=== PATIENT | female | born 1970 | race Caucasian/White ===

== ENCOUNTER 2016-06-20 12:45 | Emergency (ER) | payer BC, OTHER ==
[~2016-06-20] VITALS: Ht 162.6 cm; Wt 91.2 kg
[2016-06-20] MEDS ORDERED: LOSA100T37 PO (13:08)
[2016-06-20] MEDS ORDERED: METF500T4 PO (13:08)
[2016-06-20] MEDS ORDERED: SERT50TA PO (13:08)
[2016-06-20] MEDS ORDERED: diphenhydrAMINE 25 MG CAP As Ordered ONE (14:27)
[2016-06-20] MEDS ORDERED: diphenhydrAMINE 50 MG CAP PO ONE (14:30)
[2016-06-20 15:42] VITALS: BP 175/91
[2016-06-20] MEDS ORDERED: BENA25CA4 PO (15:43)
[2016-06-20] MEDS ORDERED: PRED20TA PO (15:43)
[2016-06-20] MEDS ORDERED: EPIN0.3I6 IM (15:50)
== END 2016-06-20 15:54 | disposition home or self-care (01) ==
LOC: M ED 14:17
DX: R22.1 Localized swelling, mass and lump, neck (principal); T78.40XA Allergy, unspecified, initial encounter; Y92.89 Other specified places as the place of occurrence of the external cause; Y93.89 Activity, other specified; Z88.2 Allergy status to sulfonamides; Z91.040 Latex allergy status; Z79.899 Other long term (current) drug therapy; Z79.84 Long term (current) use of oral hypoglycemic drugs; I10 Essential (primary) hypertension

== ENCOUNTER → 2017-04-19 | Outpatient (CLI) | payer BC, OTHER ==
[2017-04-19 17:16] LABS: BASO # 0.1 10^3/uL (0.0-0.2); EOS # 0.3 10^3/uL (0.0-0.50); EOS % 3.9 % (0.0-3.0); HEMATOCRIT 41.8 % (36.0-47.0); HEMOGLOBIN 13.6 g/dl (12.0-16.0); IMMATURE GRANULOCYTE # 0.1 10^3/uL (0-0); IMMATURE GRANULOCYTE % 1.3 % (0-0); LYMPH # 1.8 10^3/uL (1.5-4.5); LYMPH % 23.8 % (24.0-44.0); MEAN CORPUSCULAR HEMOGLOBIN 27.8 pg (27.0-33.0); MEAN CORPUSCULAR HGB CONC 32.5 g/dl (32.0-36.5); MEAN CORPUSCULAR VOLUME 85.5 fl (80.0-96.0); MONO # 0.7 10^3/uL (0.0-0.8); MONO % 9.5 % (0.0-5.0); NEUTROPHILS # 4.7 10^3/uL (1.8-7.7); NEUTROPHILS % 60.5 % (36.0-66.0); PLATELET COUNT, AUTOMATED 377 10^3/uL (150-450); RED BLOOD COUNT 4.89 10^6/uL (4.00-5.40); RED CELL DISTRIBUTION WIDTH 12.9 % (11.5-14.5); WHITE BLOOD COUNT 7.7 10^3/uL (4.0-10.0)
[2017-04-19 18:25] LABS: ESTIMATED AVERAGE GLUCOSE 157 MG/DL (60-110); HEMOGLOBIN A1c 7.1 %
[2017-04-19 18:33] LABS: FOLATE 20.1 NG/ML; VITAMIN B12 LEVEL 692 PG/ML
[2017-04-19 18:38] LABS: ALBUMIN 4.1 GM/DL (3.2-5.2); ALBUMIN/GLOBULIN RATIO 1.17 (1.00-1.93); ALKALINE PHOSPHATASE 64 U/L (45-117); ALT/SGPT 70 U/L (12-78); ANION GAP 9 MEQ/L (8-16); AST/SGOT 59 U/L (7-37); BILIRUBIN,TOTAL 0.2 MG/DL (0.2-1.0); BLOOD UREA NITROGEN 11 MG/DL (7-18); CALCIUM LEVEL 9.4 MG/DL (8.5-10.1); CARBON DIOXIDE LEVEL 27 MEQ/L (21-32); CHLORIDE LEVEL 105 MEQ/L (98-107); CHOLESTEROL LEVEL 277 MG/DL (<200); CHOLESTEROL RISK RATIO 7.694 (<5); CREATININE FOR GFR 0.65 MG/DL (0.55-1.02); GLOMERULAR FILTRATION RATE > 60.0 (>58); GLUCOSE, FASTING 151 MG/DL (70-105); HDL CHOLESTEROL 36 MG/DL (>40); NON-HDL-C 241 MG/DL; POTASSIUM SERUM 4.4 MEQ/L (3.5-5.1); SODIUM LEVEL 141 MEQ/L (136-145); TOTAL PROTEIN 7.6 GM/DL (6.4-8.2); TRIGLYCERIDES LEVEL 675 MG/DL (<150)
== END ==
LOC: M SMT 13:13
DX: M54.5 Low back pain (principal); E11.40 Type 2 diabetes mellitus with diabetic neuropathy, unspecified; M79.672 Pain in left foot; M79.671 Pain in right foot
CPT/HCPCS: 82746

== ENCOUNTER 2018-02-17 10:31 | Emergency (ER) | payer BC, OTHER | END 2018-02-17 12:46 | disposition home or self-care (01) | LOC: M ED 10:31 | DX: S89.91XA Unspecified injury of right lower leg, initial encounter (principal); X50.9XXA Other and unspecified overexertion or strenuous movements or postures, initial encounter; Y92.018 Other place in single-family (private) house as the place of occurrence of the external cause; I10 Essential (primary) hypertension; F41.9 Anxiety disorder, unspecified | CPT/HCPCS: 73564 ==

== ENCOUNTER → 2018-02-24 | Outpatient (CLI) | payer BC, OTHER ==
[2018-02-24 13:46] LABS: ALBUMIN 3.5 GM/DL (3.2-5.2); ALBUMIN/GLOBULIN RATIO 1.06 (1.00-1.93); ALKALINE PHOSPHATASE 68 U/L (45-117); ALT/SGPT 54 U/L (12-78); ANION GAP 9 MEQ/L (8-16); AST/SGOT 28 U/L (7-37); BILIRUBIN,TOTAL 0.3 MG/DL (0.2-1.0); BLOOD UREA NITROGEN 7 MG/DL (7-18); CALCIUM LEVEL 9.1 MG/DL (8.5-10.1); CARBON DIOXIDE LEVEL 27 MEQ/L (21-32); CHLORIDE LEVEL 103 MEQ/L (98-107); CREATININE FOR GFR 0.62 MG/DL (0.55-1.30); GLOMERULAR FILTRATION RATE > 60.0 (>58); GLUCOSE, FASTING 122 MG/DL (70-100); POTASSIUM SERUM 4.4 MEQ/L (3.5-5.1); SODIUM LEVEL 139 MEQ/L (136-145); TOTAL PROTEIN 6.8 GM/DL (6.4-8.2)
[2018-02-24 14:35] LABS: ESTIMATED AVERAGE GLUCOSE 160 MG/DL (60-110); HEMOGLOBIN A1c 7.2 %
== END ==
LOC: M SMT 08:56
DX: E11.65 Type 2 diabetes mellitus with hyperglycemia (principal)
CPT/HCPCS: 80053

== ENCOUNTER 2018-12-24 10:35 | Emergency (ER) | payer BC, OTHER ==
[~2018-12-24] VITALS: Ht 162.6 cm; Wt 91.0 kg
[~2018-12-24 10:35] MED LIST: BENA25CA4 PO; EPIN0.3I11 IM; LOSA100T5 PO; METF-791 PO; NAPR-855 PO; PRED20TA PO; SERT-141 PO
[2018-12-24] MEDS ORDERED: MELO15TA28 PO (11:11)
[2018-12-24] MEDS ORDERED: LISI10TA4 PO (11:11)
[2018-12-24] MEDS ORDERED: VICT18IN2 SQ (11:11)
[2018-12-24] MEDS ORDERED: GABA-843 PO (11:11)
[2018-12-24] MEDS ORDERED: OMEP-218 PO (11:11)
[2018-12-24] MEDS ORDERED: CLON0.12 PO (11:11)
[2018-12-24] MEDS ORDERED: clonazePAM 0.5 MG TAB PO ONE (13:45)
[2018-12-24 14:22] LABS: BASO % 0.5 % (0.0-1.0); EOS # 0.3 10^3/uL (0.0-0.5); HEMATOCRIT 36.6 % (36.0-47.0); HEMOGLOBIN 11.7 g/dl (12.0-15.5); LYMPH # 1.8 10^3/uL (1.5-5.0); LYMPH % 21.2 % (24.0-44.0); MEAN CORPUSCULAR HEMOGLOBIN 26.1 pg (27.0-33.0); MEAN CORPUSCULAR VOLUME 81.7 fl (80.0-96.0); MONO # 0.6 10^3/uL (0.0-0.8); MONO % 6.5 % (0.0-5.0); NEUTROPHILS # 5.8 10^3/uL (1.5-8.5); PLATELET COUNT, AUTOMATED 344 10^3/uL (150-450); RED BLOOD COUNT 4.48 10^6/uL (4.00-5.40); WHITE BLOOD COUNT 8.6 10^3/uL (4.0-10.0)
--- NOTE | 2018-12-24 14:40 | REP ---
LEFT HIP, TWO VIEWS: AP and frog-leg views of the left hip are performed. There are very mild degenerative changes. No acute fracture or dislocation is seen. IMPRESSION: No acute fracture or dislocation. Mild degenerative changes. Electronically Signed by Austen Ang MD 12/25/2018 09:42 A
[2018-12-24 14:50] LABS: BLOOD UREA NITROGEN 13 MG/DL (7-18); CALCIUM LEVEL 9.4 MG/DL (8.5-10.1); CARBON DIOXIDE LEVEL 27 MEQ/L (21-32); CHLORIDE LEVEL 99 MEQ/L (98-107); CREATININE FOR GFR 0.74 MG/DL (0.55-1.30); GLOMERULAR FILTRATION RATE > 60.0 (>51); GLUCOSE, FASTING 231 MG/DL (70-100); POTASSIUM SERUM 3.9 MEQ/L (3.5-5.1); SODIUM LEVEL 135 MEQ/L (136-145)
[2018-12-24 16:18] VITALS: BP 125/70
== END 2018-12-24 16:20 | disposition home or self-care (01) ==
LOC: M ED 10:35
DX: M25.552 Pain in left hip (principal); F43.0 Acute stress reaction; E11.9 Type 2 diabetes mellitus without complications; I10 Essential (primary) hypertension; K21.9 Gastro-esophageal reflux disease without esophagitis; Z91.018 Allergy to other foods; Z88.2 Allergy status to sulfonamides; Z91.040 Latex allergy status; Z79.899 Other long term (current) drug therapy

== ENCOUNTER → 2018-12-25 | Outpatient (CLI) | payer BC, OTHER ==
[~2018-12-25] MED LIST changes: +CLON0.12 PO; +GABA-843 PO; +LISI10TA4 PO; +MELO15TA28 PO; +OMEP-218 PO; +VICT18IN2 SQ
[2018-12-25 18:00] LABS: ALBUMIN 3.5 GM/DL (3.2-5.2); ALT/SGPT 59 U/L (12-78); BILIRUBIN,TOTAL 0.3 MG/DL (0.2-1.0); BLOOD UREA NITROGEN 13 MG/DL (7-18); CALCIUM LEVEL 9.2 MG/DL (8.5-10.1); CARBON DIOXIDE LEVEL 27 MEQ/L (21-32); CHLORIDE LEVEL 100 MEQ/L (98-107); CREATININE FOR GFR 0.76 MG/DL (0.55-1.30); GLOMERULAR FILTRATION RATE > 60.0 (>51); GLUCOSE, FASTING 156 MG/DL (70-100); POTASSIUM SERUM 3.7 MEQ/L (3.5-5.1); SODIUM LEVEL 137 MEQ/L (136-145); TOTAL PROTEIN 7.1 GM/DL (6.4-8.2)
[2018-12-25 19:30] LABS: HEMOGLOBIN A1c 9.1 %
== END ==
LOC: M SMT 13:08
PROVIDERS: ATTEND Family Medicine
DX: E11.65 Type 2 diabetes mellitus with hyperglycemia (principal)

== ENCOUNTER → 2019-04-09 | Outpatient (CLI) | payer BC, OTHER ==
[2019-04-09 14:40] LABS: ALBUMIN 3.8 GM/DL (3.2-5.2); ALT/SGPT 39 U/L (12-78); BILIRUBIN,TOTAL 0.3 MG/DL (0.2-1.0); BLOOD UREA NITROGEN 14 MG/DL (7-18); CALCIUM LEVEL 9.6 MG/DL (8.5-10.1); CARBON DIOXIDE LEVEL 28 MEQ/L (21-32); CHLORIDE LEVEL 101 MEQ/L (98-107); CREATININE FOR GFR 0.68 MG/DL (0.55-1.30); GLOMERULAR FILTRATION RATE > 60.0 (>51); GLUCOSE, FASTING 156 MG/DL (70-100); POTASSIUM SERUM 4.6 MEQ/L (3.5-5.1); SODIUM LEVEL 138 MEQ/L (136-145); TOTAL PROTEIN 7.6 GM/DL (6.4-8.2)
[2019-04-09 14:45] LABS: CREATININE, URINE 63.3 MG/DL; MALB URINE SIEMENS < 5.0 MG/L; MAU/CREAT RATIO 7.8 MCG/MG (0.0-30.0)
[2019-04-09 15:48] LABS: HEMOGLOBIN A1c 8.8 %
== END ==
LOC: M PLALAB 08:41
PROVIDERS: ATTEND Family Medicine
DX: E11.40 Type 2 diabetes mellitus with diabetic neuropathy, unspecified (principal)

== ENCOUNTER → 2019-09-28 | Outpatient (CLI) | payer BC, OTHER ==
[~2019-09-28] MED LIST changes: -METF-791 PO; +METF-838 PO
[2019-09-28 12:27] LABS: BASO # 0.1 10^3/uL (0.0-0.2); BASO % 1.1 % (0.0-1.0); EOS # 0.3 10^3/uL (0.0-0.5); EOS % 4.9 % (0.0-3.0); HEMOGLOBIN 14.5 g/dl (12.0-15.5); LYMPH # 1.8 10^3/uL (1.5-5.0); MEAN CORPUSCULAR HGB CONC 31.5 g/dl (32.0-36.5); MEAN CORPUSCULAR VOLUME 82.4 fl (80.0-96.0); MONO # 0.5 10^3/uL (0.0-0.8); MONO % 8.3 % (0.0-5.0); NEUTROPHILS # 3.7 10^3/uL (1.5-8.5); NEUTROPHILS % 56.9 % (36.0-66.0); PLATELET COUNT, AUTOMATED 347 10^3/uL (150-450); RED BLOOD COUNT 5.58 10^6/uL (4.00-5.40); WHITE BLOOD COUNT 6.5 10^3/uL (4.0-10.0)
[2019-09-28 12:32] LABS: ALT/SGPT 43 U/L (12-78); BILIRUBIN,TOTAL 0.3 MG/DL (0.2-1.0); BLOOD UREA NITROGEN 17 MG/DL (7-18); CARBON DIOXIDE LEVEL 29 MEQ/L (21-32); CHLORIDE LEVEL 101 MEQ/L (98-107); CREATININE FOR GFR 0.76 MG/DL (0.55-1.30); GLOMERULAR FILTRATION RATE > 60.0 (>51); GLUCOSE, FASTING 168 MG/DL (70-100); POTASSIUM SERUM 3.7 MEQ/L (3.5-5.1); SODIUM LEVEL 136 MEQ/L (136-145); TOTAL PROTEIN 7.7 GM/DL (6.4-8.2)
== END ==
LOC: M PLALAB 10:10
PROVIDERS: ATTEND Family Medicine
DX: E11.40 Type 2 diabetes mellitus with diabetic neuropathy, unspecified (principal)

== ENCOUNTER → 2020-01-02 | Outpatient (CLI) | payer BC, OTHER ==
[2020-01-02 13:57] LABS: ALBUMIN 3.7 GM/DL (3.2-5.2); ALT/SGPT 39 U/L (12-78); BILIRUBIN,TOTAL 0.3 MG/DL (0.2-1.0); BLOOD UREA NITROGEN 17 MG/DL (7-18); CALCIUM LEVEL 9.7 MG/DL (8.5-10.1); CARBON DIOXIDE LEVEL 28 MEQ/L (21-32); CHLORIDE LEVEL 103 MEQ/L (98-107); CREATININE FOR GFR 0.68 MG/DL (0.55-1.30); GLOMERULAR FILTRATION RATE > 60.0 (>51); GLUCOSE, FASTING 164 MG/DL (70-100); POTASSIUM SERUM 4.2 MEQ/L (3.5-5.1); SODIUM LEVEL 137 MEQ/L (136-145)
[2020-01-02 14:23] LABS: CREATININE, URINE 55.9 MG/DL; MALB URINE SIEMENS 5.2 MG/L; MAU/CREAT RATIO 9.3 MCG/MG (0.0-30.0)
[2020-01-02 15:10] LABS: HEMOGLOBIN A1c 7.5 %
== END ==
LOC: M WUC 08:37
PROVIDERS: ATTEND Family Medicine
DX: E11.40 Type 2 diabetes mellitus with diabetic neuropathy, unspecified (principal)

== ENCOUNTER → 2020-03-18 | Outpatient (CLI) | payer BC, OTHER | LOC: M LABSMTC 14:08 | PROVIDERS: ATTEND Family Medicine | DX: Z20.828 Contact with and (suspected) exposure to other viral communicable diseases (principal) ==

== ENCOUNTER → 2020-05-13 | Outpatient (CLI) | payer BC, OTHER ==
[~2020-05-13] MED LIST changes: +GABA-282 PO; -GABA-843 PO; +LISI10TA22 PO; -LISI10TA4 PO
[2020-05-13 10:24] LABS: BASO # 0.1 10^3/uL (0.0-0.2); BASO % 0.9 % (0.0-1.0); EOS # 0.2 10^3/uL (0.0-0.5); EOS % 3.4 % (0.0-3.0); HEMATOCRIT 41.6 % (36.0-47.0); HEMOGLOBIN 13.3 g/dl (12.0-15.5); LYMPH # 1.9 10^3/uL (1.5-5.0); LYMPH % 32.4 % (24.0-44.0); MEAN CORPUSCULAR HEMOGLOBIN 26.9 pg (27.0-33.0); MEAN CORPUSCULAR VOLUME 84.2 fl (80.0-96.0); MONO # 0.4 10^3/uL (0.0-0.8); MONO % 7.3 % (0.0-5.0); NEUTROPHILS # 3.2 10^3/uL (1.5-8.5); NEUTROPHILS % 55.3 % (36.0-66.0); PLATELET COUNT, AUTOMATED 305 10^3/uL (150-450); RED BLOOD COUNT 4.94 10^6/uL (4.00-5.40); WHITE BLOOD COUNT 5.9 10^3/uL (4.0-10.0)
[2020-05-13 10:39] LABS: HEMOGLOBIN A1c 7.1 %
[2020-05-13 10:57] LABS: ALBUMIN 3.7 GM/DL (3.2-5.2); ALT/SGPT 43 U/L (12-78); BILIRUBIN,TOTAL 0.3 MG/DL (0.2-1.0); BLOOD UREA NITROGEN 15 MG/DL (7-18); CALCIUM LEVEL 9.4 MG/DL (8.5-10.1); CARBON DIOXIDE LEVEL 29 MEQ/L (21-32); CHLORIDE LEVEL 101 MEQ/L (98-107); CHOLESTEROL LEVEL 254 MG/DL (<200); CHOLESTEROL RISK RATIO 7.257 (<5); CREATININE FOR GFR 0.73 MG/DL (0.55-1.30); FREE T4 1.18 NG/DL (0.76-1.46); GLOMERULAR FILTRATION RATE > 60.0 (>51); GLUCOSE, FASTING 150 MG/DL (70-100); HDL CHOLESTEROL 35 MG/DL (>40); NON-HDL-C 219 MG/DL; POTASSIUM SERUM 4.2 MEQ/L (3.5-5.1); SODIUM LEVEL 139 MEQ/L (136-145); TOTAL PROTEIN 6.8 GM/DL (6.4-8.2); TRIGLYCERIDES LEVEL 443 MG/DL (<150)
[2020-05-14 14:08] LABS: TISSUE TRANSGLUTAMINASE IgA <2 U/mL (0-3); TISSUE TRANSGLUTAMINASE IgG <2 U/mL (0-5)
== END ==
LOC: M PLALAB 08:31
PROVIDERS: ATTEND Physician Assistant
DX: E11.40 Type 2 diabetes mellitus with diabetic neuropathy, unspecified (principal); K21.9 Gastro-esophageal reflux disease without esophagitis; I10 Essential (primary) hypertension

== ENCOUNTER 2020-08-30 18:01 | Emergency (ER) | payer OTHER, BC ==
[~2020-08-30] VITALS: Ht 162.6 cm; Wt 81.0 kg
[2020-08-30] MEDS ORDERED: KETOROLAC 60MG 2ML VIAL IM ONE (18:20)
[2020-08-30] MEDS ORDERED: HYDR-3490 PO (18:27)
[2020-08-30] MEDS ORDERED: SEMA14TA PO (18:27)
[2020-08-30] MEDS ORDERED: METF-839 PO (18:27)
[2020-08-30] MEDS ORDERED: JARD1TAB3 PO (18:27)
[2020-08-30] MEDS ORDERED: CITA40TA4 PO (18:27)
[2020-08-30] MEDS ORDERED: LOSA100T50 PO (18:27)
[2020-08-30] MEDS ORDERED: ROSU5TAB5 PO (18:27)
[2020-08-30] MEDS ORDERED: NAPR-837 PO ×2 (18:43→19:40)
[2020-08-30] MEDS ORDERED: CYCL5TAB PO ×2 (18:43→19:40)
[2020-08-30 19:25] VITALS: BP 136/74
== END 2020-08-30 19:35 | disposition home or self-care (01) ==
LOC: EDBD 18:01 → M ED 18:01
DX: M79.12 Myalgia of auxiliary muscles, head and neck (principal); V49.40XA Driver injured in collision with unspecified motor vehicles in traffic accident, initial encounter; E11.9 Type 2 diabetes mellitus without complications; I10 Essential (primary) hypertension; Z88.2 Allergy status to sulfonamides; Z91.040 Latex allergy status; Z79.899 Other long term (current) drug therapy
CPT/HCPCS: 96372; 99284; J1885

== ENCOUNTER → 2020-09-09 | Outpatient (CLI) | payer BC, OTHER ==
[~2020-09-09] MED LIST changes: +CITA40TA4 PO; +CYCL5TAB PO; +HYDR-3490 PO; +JARD1TAB3 PO; +LOSA100T50 PO; +METF-839 PO; +NAPR-837 PO; +ROSU5TAB5 PO; +SEMA14TA PO
--- NOTE | 2020-09-09 16:00 | REPMRS ---
Patient History The patient states she has not had a clinical breast exam in over a year. Patient is postmenopausal. Family history of breast cancer at age 40 in mother, breast cancer at age 50 in maternal grandmother. Reductions of both breasts, 2015. Took hormonal contraceptives for 2 years. Patient states no breast complaints. Patient states after breast reduction she was informed she had necrotic tissue in her left breast. Patient states left breast firmness is unchanged from 2015... Patient states she declined to have a mammogram in 2014 /2015. Patient has signed the MRS history sheet. Digital Woman Screen Mammo: September 09, 2020 - Exam #: [id number] Bilateral CC and MLO view(s) were taken. Technologist: Caity Mcdonald, Technologist Prior study comparison: December 27, 2014, digital bilateral screening mammo, performed at [facility]. FINDINGS: There are scattered fibroglandular densities. The Volpara volumetric breast density category is:B. The patient has undergone bilateral reduction mammoplasty in the interval since the 2015 prior mammography. There is peripheral calcification associated with the spherical fat density lesion in the retroareolar region of the left breast consistent with a fairly large area of fat necrosis. This area measures 4.5 cm in greatest diameter. There are few scattered benign calcifications on the right. There has been no other change in the appearance of the mammogram from the prior studies. There is a mild amount of scattered fibroglandular density which is fairly symmetric. There is no other interval development of dominant mass, architectural distortion, or grouped microcalcification suggestive of malignancy. 3-D tomosynthesis shows no additional findings. Assessment: BI-RADS/ACR category 2 mammogram. Benign Findings. Recommendation Breast MRI of both breasts in 6 months. Routine screening mammogram of both breasts in 1 year (for women over age 40). This patient's [facility] Lifetime Breast Cancer Risk is estimated at 28.6 %. Patients whose estimated lifetime breast cancer risk assessment is greater than 20% merit annual screening breast MRI scanning in addition to annual mammography. This mammogram was interpreted with the aid of an FDA-approved computer-aided dectection system. Electronically Signed By: Christopher Redding MD 09/09/20 [id number]
== END ==
LOC: M WHC 07:25
PROVIDERS: ATTEND Family Medicine
DX: Z12.31 Encounter for screening mammogram for malignant neoplasm of breast (principal)

== ENCOUNTER → 2020-11-26 | Outpatient (CLI) | payer BC, OTHER | LOC: M LABSMTC 09:31 | PROVIDERS: ATTEND Anesthesiology | DX: Z20.828 Contact with and (suspected) exposure to other viral communicable diseases (principal); Z11.59 Encounter for screening for other viral diseases ==

== ENCOUNTER 2020-12-01 07:42 | Day surgery (SDC) | payer BC, OTHER ==
[~2020-12-01] VITALS: Ht 162.6 cm; Wt 79.4 kg
[~2020-12-01 07:42] MED LIST changes: +NS 1,000 ML IV ONE
[2020-12-01] MEDS ORDERED: fentaNYL 100 MCG/2 ML INJECTION (J3010) As Ordered ONE (08:19)
[2020-12-01] MEDS ORDERED: LIDOCAINE 2% 100MG/5ML SDV (FOR ANES.) As Ordered ONE (08:20)
[2020-12-01] MEDS ORDERED: propofoL 200 MG/20 ML VIAL As Ordered ONE (08:20)
--- NOTE | 2020-12-01 08:43 | ROOR ---
Patient Name: Barbara Foreman Procedure Date: 12/01/2020 8:25 AM Date of : 1970 Age: 50 Room: [facility] Gender: Female Note Status: Finalized Procedure: Upper GI endoscopy Indications: Suspected esophageal reflux Providers: Rodriguez Snell Jr, MD Referring MD: Macy BELCHER DO Requesting Provider: Medicines: Propofol per Anesthesia Complications: No immediate complications. Procedure: Pre-Anesthesia Assessment: - Prior to the procedure, a History and Physical was performed, and patient medications and allergies were reviewed. The patient is competent. The risks and benefits of the procedure and the sedation options and risks were discussed with the patient. All questions were answered and informed consent was obtained. Patient identification and proposed procedure were verified by the physician and the nurse in the pre-procedure area and in the procedure room. Mental Status Examination: alert and oriented. Airway Examination: normal oropharyngeal airway and neck mobility. Respiratory Examination: clear to auscultation. CV Examination: normal. ASA Grade Assessment: II - A patient with mild systemic disease. After reviewing the risks and benefits, the patient was deemed in satisfactory condition to undergo the procedure. The anesthesia plan was to use moderate sedation / analgesia (conscious sedation). Immediately prior to administration of medications, the patient was re-assessed for adequacy to receive sedatives. The heart rate, respiratory rate, oxygen saturations, blood pressure, adequacy of pulmonary ventilation, and response to care were monitored throughout the procedure. The physical status of the patient was re-assessed after the procedure. The Endoscope was introduced through the mouth, and advanced to the second part of duodenum. The upper GI endoscopy was accomplished without difficulty. The patient tolerated the procedure well. Findings: The upper third of the esophagus, middle third of the esophagus and lower third of the esophagus were normal. A small hiatal hernia was present. The cardia, gastric antrum and prepyloric region of the stomach were normal. Multiple medium pedunculated polyps with no bleeding and no stigmata of recent bleeding were found in the gastric fundus and in the gastric body. These polyps were removed with a hot snare. Resection was complete, but the polyp tissue was only partially retrieved. The duodenal bulb, first portion of the duodenum and second portion of the duodenum were normal. Impression: - Normal upper third of esophagus, middle third of esophagus and lower third of esophagus. - Small hiatal hernia. - Normal cardia, antrum and prepyloric region of the stomach. - Multiple gastric polyps. Complete resection. Partial retrieval. - Normal duodenal bulb, first portion of the duodenum and second portion of the duodenum. Recommendation: - Discharge patient to home (ambulatory). - Return to my office as previously scheduled. Procedure Code(s): --- Professional --- 11740, Esophagogastroduodenoscopy, flexible, transoral; with removal of tumor(s), polyp(s), or other lesion(s) by snare technique Diagnosis Code(s): --- Professional --- K44.9, Diaphragmatic hernia without obstruction or gangrene K31.7, Polyp of stomach and duodenum CPT copyright 2019 [employer]. All rights reserved. The codes documented in this report are preliminary and upon green chain operator review may be revised to meet current compliance requirements. Rodriguez Snell MD Rodriguez Snell Jr, MD 12/01/2020 8:43:18 AM Electronically signed by Rodriguez Snell Jr, MD Number of Addenda: 0 Note Initiated On: 12/01/2020 8:25 AM Estimated Blood Loss: Estimated blood loss: none.
--- NOTE | 2020-12-01 08:55 | ROOR ---
Patient Name: Barbara Foreman Procedure Date: 12/01/2020 8:26 AM Date of : 1970 Age: 50 Room: [facility] Gender: Female Note Status: Finalized Procedure: Colonoscopy Indications: Constipation Providers: Rodriguez Snell Jr, MD Referring MD: Macy BELCHER DO Requesting Provider: Medicines: Propofol per Anesthesia Complications: No immediate complications. Procedure: Pre-Anesthesia Assessment: - Prior to the procedure, a History and Physical was performed, and patient medications and allergies were reviewed. The patient is competent. The risks and benefits of the procedure and the sedation options and risks were discussed with the patient. All questions were answered and informed consent was obtained. Patient identification and proposed procedure were verified by the physician and the nurse in the pre-procedure area and in the procedure room. Mental Status Examination: alert and oriented. Airway Examination: normal oropharyngeal airway and neck mobility. Respiratory Examination: clear to auscultation. CV Examination: normal. ASA Grade Assessment: II - A patient with mild systemic disease. After reviewing the risks and benefits, the patient was deemed in satisfactory condition to undergo the procedure. The anesthesia plan was to use moderate sedation / analgesia (conscious sedation). Immediately prior to administration of medications, the patient was re-assessed for adequacy to receive sedatives. The heart rate, respiratory rate, oxygen saturations, blood pressure, adequacy of pulmonary ventilation, and response to care were monitored throughout the procedure. The physical status of the patient was re-assessed after the procedure. The Colonoscope was introduced through the anus and advanced to the cecum, identified by appendiceal orifice and ileocecal valve. The colonoscopy was performed without difficulty. The patient tolerated the procedure well. The quality of the bowel preparation was fair and poor. Findings: The recto-sigmoid colon, descending colon, transverse colon, cecum and ileocecal valve appeared normal. A few small-mouthed diverticula were found in the sigmoid colon and ascending colon. A diminutive polyp was found in the rectum. The polyp was removed with a cold snare. Resection and retrieval were complete. Impression: - Preparation of the colon was fair. - Preparation of the colon was poor. - The recto-sigmoid colon, descending colon, transverse colon, cecum and ileocecal valve are normal. - Diverticulosis in the sigmoid colon and in the ascending colon. - One diminutive polyp in the rectum, removed with a cold snare. Resected and retrieved. Recommendation: - Discharge patient to home (ambulatory). - Repeat colonoscopy date to be determined after pending pathology results are reviewed for surveillance based on pathology results. Procedure Code(s): --- Professional --- 98337, Colonoscopy, flexible; with removal of tumor(s), polyp(s), or other lesion(s) by snare technique Diagnosis Code(s): --- Professional --- K62.1, Rectal polyp K59.00, Constipation, unspecified K57.30, Diverticulosis of large intestine without perforation or abscess without bleeding CPT copyright 2019 [employer]. All rights reserved. The codes documented in this report are preliminary and upon reverberatory skimmer review may be revised to meet current compliance requirements. Rodriguez Snell MD Rodriguez Snell Jr, MD 12/01/2020 8:55:27 AM Electronically signed by Rodriguez Snell Jr, MD Number of Addenda: 0 Note Initiated On: 12/01/2020 8:26 AM Estimated Blood Loss: Estimated blood loss: none.
[2020-12-01 09:23] VITALS: BP 140/83
[2020-12-01] MEDS ORDERED: MAXITROL OPHTH SUSP 5 ML As Ordered ONE (11:42)
== END 2020-12-01 09:25 | disposition home or self-care (01) ==
LOC: M OPP 07:42
PROVIDERS: ATTEND Surgery
DX: K63.5 Polyp of colon (principal); K59.00 Constipation, unspecified; R10.9 Unspecified abdominal pain; K21.9 Gastro-esophageal reflux disease without esophagitis; K44.9 Diaphragmatic hernia without obstruction or gangrene; K31.7 Polyp of stomach and duodenum; Z79.84 Long term (current) use of oral hypoglycemic drugs; Z79.899 Other long term (current) drug therapy; Z88.2 Allergy status to sulfonamides; Z91.018 Allergy to other foods; Z91.040 Latex allergy status
CPT/HCPCS: 43251; 45385; 88305; J3010

== ENCOUNTER → 2021-01-04 | Outpatient (CLI) | payer BC, OTHER ==
[~2021-01-04] MED LIST changes: -NS 1,000 ML IV ONE
[2021-01-04 10:29] LABS: BASO # 0.1 10^3/uL (0.0-0.2); EOS # 0.3 10^3/uL (0.0-0.5); HEMATOCRIT 33.4 % (36.0-47.0); LYMPH # 1.6 10^3/uL (1.5-5.0); LYMPH % 32.5 % (24.0-44.0); MEAN CORPUSCULAR HGB CONC 29.9 g/dl (32.0-36.5); MEAN CORPUSCULAR VOLUME 76.8 fl (80.0-96.0); MONO # 0.4 10^3/uL (0.0-0.8); MONO % 8.6 % (2.0-8.0); NEUTROPHILS # 2.5 10^3/uL (1.5-8.5); NEUTROPHILS % 51.3 % (36.0-66.0); PLATELET COUNT, AUTOMATED 354 10^3/uL (150-450); RED BLOOD COUNT 4.35 10^6/uL (4.00-5.40); WHITE BLOOD COUNT 4.9 10^3/uL (4.0-10.0)
[2021-01-04 10:54] LABS: HEMOGLOBIN A1c 6.8 %
[2021-01-04 10:59] LABS: ALBUMIN 3.6 GM/DL (3.2-5.2); ALT/SGPT 23 U/L (12-78); BILIRUBIN,TOTAL 0.3 MG/DL (0.2-1.0); BLOOD UREA NITROGEN 8 MG/DL (7-18); CARBON DIOXIDE LEVEL 29 MEQ/L (21-32); CHLORIDE LEVEL 104 MEQ/L (98-107); CHOLESTEROL LEVEL 177 MG/DL (<200); CHOLESTEROL RISK RATIO 4.317 (<5); CREATININE FOR GFR 0.69 MG/DL (0.55-1.30); GLOMERULAR FILTRATION RATE > 60.0 (>51); GLUCOSE, FASTING 99 MG/DL (70-100); HDL CHOLESTEROL 41 MG/DL (>40); LDL CHOLESTEROL 79 MG/DL (<100); NON-HDL-C 136 MG/DL; POTASSIUM SERUM 3.7 MEQ/L (3.5-5.1); SODIUM LEVEL 141 MEQ/L (136-145); TOTAL PROTEIN 6.9 GM/DL (6.4-8.2); TRIGLYCERIDES LEVEL 287 MG/DL (<150)
== END ==
LOC: M PLALAB 08:45
PROVIDERS: ATTEND Family Medicine
DX: E11.40 Type 2 diabetes mellitus with diabetic neuropathy, unspecified (principal)

== ENCOUNTER → 2021-03-22 | Outpatient (CLI) | payer BC, OTHER ==
[2021-03-22 13:09] LABS: BASO # 0.1 10^3/uL (0.0-0.2); EOS # 0.3 10^3/uL (0.0-0.5); EOS % 4.9 % (0.0-3.0); HEMATOCRIT 39.5 % (36.0-47.0); LYMPH # 1.6 10^3/uL (1.5-5.0); LYMPH % 30.7 % (24.0-44.0); MEAN CORPUSCULAR HGB CONC 30.4 g/dl (32.0-36.5); MEAN CORPUSCULAR VOLUME 78.8 fl (80.0-96.0); MONO # 0.5 10^3/uL (0.0-0.8); MONO % 8.8 % (2.0-8.0); NEUTROPHILS # 2.8 10^3/uL (1.5-8.5); NEUTROPHILS % 54.4 % (36.0-66.0); PLATELET COUNT, AUTOMATED 316 10^3/uL (150-450); RED BLOOD COUNT 5.01 10^6/uL (4.00-5.40); WHITE BLOOD COUNT 5.1 10^3/uL (4.0-10.0)
[2021-03-22 13:38] LABS: MALB URINE SIEMENS < 5.0 MG/L; MAU/CREAT RATIO 4.8 MCG/MG (0.0-30.0)
[2021-03-22 13:48] LABS: ALBUMIN 3.7 GM/DL (3.2-5.2); ALT/SGPT 22 U/L (12-78); BILIRUBIN,TOTAL 0.3 MG/DL (0.2-1.0); BLOOD UREA NITROGEN 14 MG/DL (7-18); CALCIUM LEVEL 9.7 MG/DL (8.5-10.1); CARBON DIOXIDE LEVEL 31 MEQ/L (21-32); CHLORIDE LEVEL 105 MEQ/L (98-107); CREATININE FOR GFR 0.67 MG/DL (0.55-1.30); FREE T4 1.02 NG/DL (0.76-1.46); GLOMERULAR FILTRATION RATE > 60.0 (>51); GLUCOSE, FASTING 97 MG/DL (70-100); IRON (FE) 24 UG/DL (50-170); PERCENT SATURATION 5.1 % (13.2-45.0); SODIUM LEVEL 141 MEQ/L (136-145); TOTAL IRON BINDING CAPACITY 472 UG/DL (250-450)
[2021-03-22 14:03] LABS: HEMOGLOBIN A1c 6.1 %
== END ==
LOC: M PLALAB 11:10
PROVIDERS: ATTEND Physician Assistant
DX: E11.40 Type 2 diabetes mellitus with diabetic neuropathy, unspecified (principal)

== ENCOUNTER → 2021-04-04 | Outpatient (CLI) | payer BC, OTHER ==
[~2021-04-04] MED LIST changes: +PROHANCE 279.3MG/ML 15ML VIAL As Ordered ONE; +PROHANCE 279.3MG/ML 5ML VIAL As Ordered ONE
--- NOTE | 2021-04-04 16:54 | REP ---
INDICATION: ABN IMAG. COMPARISON: Mammogram 09/09/2020. TECHNIQUE: Three Oumou MRI imaging was performed with a dedicated breast coil. Axial, coronal, and sagittal T1 and T2 weighted scans were obtained with and without fat saturation in the usual fashion. The study includes dynamically acquired post gadolinium-enhanced imaging with image subtraction. Maximum intensity projection and multi planar reformation imaging is included as well. This study is interpreted with the aid of ArachnoD, an FDA approved computer aided detection (CAD) software program, on a dedicated breast MRI workstation. The gadolinium enhancement dose is 16 mL of intravenous ProHance. FINDINGS: There is a fairly large area of fat necrosis in the left breast, posterior to the nipple. This area measures approximately 5.6 x 2.9 cm. There is mild scattered fibroglandular tissue present bilaterally. No enlarged axillary lymph nodes are present. No significant cystic change is seen in either breast. There is mild background parenchymal enhancement. There is no suspicious enhancing mass or morphologic abnormality in either breast. However, there is a left chest wall mass which demonstrates enhancement, measuring approximately 2.9 x 2.3 x 3.3 cm. This is located in the left chest wall anterior to the heart between anterior ribs. IMPRESSION: BI-RADS category 2, benign breast MRI. Fat necrosis is again identified in the left breast with no suspicious enhancing mass or morphologic abnormality in either breast. However, there is a suspicious appearing, enhancing mass of the anterior left chest wall for which CT guided biopsy is recommended. <Electronically signed by Austen Ang > 04/04/21 [id number]
== END ==
LOC: M RAD 08:37
PROVIDERS: ATTEND Family Medicine
DX: R92.8 Other abnormal and inconclusive findings on diagnostic imaging of breast (principal)
CPT/HCPCS: A9576; C8908

== ENCOUNTER → 2021-04-19 | Outpatient (CLI) | payer BC, OTHER ==
[~2021-04-19] MED LIST changes: -PROHANCE 279.3MG/ML 15ML VIAL As Ordered ONE; -PROHANCE 279.3MG/ML 5ML VIAL As Ordered ONE
[2021-04-19 14:05] LABS: INR 0.92; PROTHROMBIN TIME 12.8 SECONDS (12.7-14.5)
== END ==
LOC: M PLALAB 10:02
PROVIDERS: ATTEND Family Medicine
DX: D38.3 Neoplasm of uncertain behavior of mediastinum (principal)

== ENCOUNTER → 2021-04-25 | Outpatient (CLI) | payer BC, OTHER ==
[~2021-04-25] MED LIST changes: -CITA40TA4 PO; +CITA40TA7 PO; +LIDOCAINE 1% MDV 20ML VIAL As Ordered ONE; +LOSA100T45 PO; -LOSA100T50 PO
[2021-04-25 10:09] VITALS: BP 127/80
== END ==
LOC: M IRPRO 08:50
PROVIDERS: ATTEND Family Medicine
DX: D17.9 Benign lipomatous neoplasm, unspecified (principal)

== ENCOUNTER → 2021-06-12 | Outpatient (CLI) | payer BC, OTHER ==
[~2021-06-12] MED LIST changes: +GASTROGRAFIN SOLUTION 30ML (Q9963) ONE; +ISOVUE-370 76% 100ML VIAL ONE; -LIDOCAINE 1% MDV 20ML VIAL As Ordered ONE; +OMEP-173 PO; -OMEP-218 PO
== END ==
LOC: M PLAIMG 09:00
PROVIDERS: ATTEND Surgery
DX: N28.9 Disorder of kidney and ureter, unspecified (principal); R19.01 Right upper quadrant abdominal swelling, mass and lump

== ENCOUNTER 2021-06-20 20:26 | Emergency (ER) | payer BC, OTHER ==
[~2021-06-20] VITALS: Ht 162.6 cm; Wt 79.5 kg
[~2021-06-20 20:26] MED LIST changes: -GASTROGRAFIN SOLUTION 30ML (Q9963) ONE; -ISOVUE-370 76% 100ML VIAL ONE; -SEMA14TA PO; +SEMA14TA2 PO
[2021-06-20] MEDS ORDERED: NORCO, ANEXSIA 5/325MG TABLET (HYDROcodone/ACETAMINOPHEN) PO ONE (23:55)
[2021-06-20] MEDS ORDERED: NAPR-837 PO (23:57)
[2021-06-21 00:09] VITALS: BP 158/92
== END 2021-06-21 01:56 | disposition home or self-care (01) ==
LOC: M ED 20:26
DX: S43.422A Sprain of left rotator cuff capsule, initial encounter (principal); W01.0XXA Fall on same level from slipping, tripping and stumbling without subsequent striking against object, initial encounter; K21.9 Gastro-esophageal reflux disease without esophagitis; E11.9 Type 2 diabetes mellitus without complications; Z79.4 Long term (current) use of insulin; Z88.2 Allergy status to sulfonamides; Z91.010 Allergy to peanuts; Z91.040 Latex allergy status; Z79.899 Other long term (current) drug therapy; Y92.9 Unspecified place or not applicable; Y93.9 Activity, unspecified; Y99.9 Unspecified external cause status

== ENCOUNTER → 2021-10-10 | Outpatient (CLI) | payer BC, OTHER ==
[2021-10-10 16:34] LABS: BLOOD UREA NITROGEN 9 MG/DL (7-18); CREATININE FOR GFR 0.66 MG/DL (0.55-1.30); GLOMERULAR FILTRATION RATE > 60.0 (>51)
== END ==
LOC: M WUC 14:31
PROVIDERS: ATTEND Nurse Practitioner Family
DX: R19.01 Right upper quadrant abdominal swelling, mass and lump (principal); E11.9 Type 2 diabetes mellitus without complications

== ENCOUNTER → 2021-10-17 | Outpatient (CLI) | payer BC, OTHER ==
[~2021-10-17] MED LIST changes: +GASTROGRAFIN SOLUTION 30ML (Q9963) As Ordered ONE; +ISOVUE-370 76% 100ML VIAL As Ordered ONE
== END ==
LOC: M RAD 13:04
PROVIDERS: ATTEND Nurse Practitioner Family
DX: R19.01 Right upper quadrant abdominal swelling, mass and lump (principal); E11.9 Type 2 diabetes mellitus without complications; N28.1 Cyst of kidney, acquired
CPT/HCPCS: 71260; 74177; Q9963; Q9967

== ENCOUNTER → 2024-02-10 | Outpatient (CLI) | payer BC ==
[~2024-02-10] MED LIST changes: +GABA-1172 PO; -GABA-282 PO; -GASTROGRAFIN SOLUTION 30ML (Q9963) As Ordered ONE; -ISOVUE-370 76% 100ML VIAL As Ordered ONE; -LOSA100T45 PO; +LOSA100T46 PO; +ROSU5TAB40 PO; -ROSU5TAB5 PO
== END ==
LOC: M WHC 12:38
PROVIDERS: ATTEND Family Medicine
DX: Z12.31 Encounter for screening mammogram for malignant neoplasm of breast (principal)

== ENCOUNTER → 2024-02-13 | Outpatient (CLI) | payer BC ==
[2024-02-13 07:35] LABS: BASO % 0.9 % (0.0-1.0); EOS # 0.3 10^3/uL (0.0-0.5); EOS % 6.3 % (0.0-3.0); HEMATOCRIT 37.4 % (36.0-47.0); HEMOGLOBIN 10.5 g/dl (12.0-15.5); LYMPH # 1.6 10^3/uL (1.5-5.0); LYMPH % 35.4 % (24.0-44.0); MEAN CORPUSCULAR HEMOGLOBIN 20.4 pg (27.0-33.0); MEAN CORPUSCULAR HGB CONC 28.1 g/dl (32.0-36.5); MEAN CORPUSCULAR VOLUME 72.8 fl (80.0-96.0); MONO # 0.5 10^3/uL (0.0-0.8); MONO % 10.7 % (2.0-8.0); NEUTROPHILS # 2.1 10^3/uL (1.5-8.5); PLATELET COUNT, AUTOMATED 319 10^3/uL (150-450); RED BLOOD COUNT 5.14 10^6/uL (4.00-5.40); WHITE BLOOD COUNT 4.6 10^3/uL (4.0-10.0)
[2024-02-13 07:50] LABS: ALBUMIN 3.4 G/DL (3.2-5.2); ALKALINE PHOSPHATASE 61 U/L (35-104); ALT/SGPT 25 U/L (7.0-40); AST/SGOT 10 U/L (<34); BILIRUBIN,TOTAL 0.4 MG/DL (0.3-1.2); BLOOD UREA NITROGEN 12 MG/DL (9-23); CALCIUM LEVEL 9.5 MG/DL (8.5-10.1); CARBON DIOXIDE LEVEL 27 MMOL/L (20-31); CHLORIDE LEVEL 107 MMOL/L (98-107); CHOLESTEROL LEVEL 235 MG/DL (<200); CREATININE FOR GFR 0.54 MG/DL (0.55-1.30); CREATININE, URINE 45.4 MG/DL; GLOMERULAR FILTRATION RATE > 60.0 (>51); GLUCOSE, FASTING 252 MG/DL (60-100); HDL CHOLESTEROL 35.6 MG/DL (>40); LDL CHOLESTEROL 128.2 MG/DL (<100); MALB URINE SIEMENS < 3.0 MG/L; MAU/CREAT RATIO 6.6 MCG/MG (0.0-30.0); NON-HDL-C 199.4 MG/DL; POTASSIUM SERUM 4.4 MMOL/L (3.5-5.1); SODIUM LEVEL 138 MMOL/L (136-145); TOTAL PROTEIN 6.5 G/DL (5.7-8.2); TRIGLYCERIDES LEVEL 356 MG/DL (<150)
[2024-02-13 07:54] LABS: FREE T4 1.08 NG/DL (0.89-1.76); THYROID STIMULATING HORMONE 3.199 uIU/ML (0.55-4.78)
[2024-02-13 08:17] LABS: HEMOGLOBIN A1c 10.5 % (4.0-6.0)
== END ==
LOC: M LAB 06:38
PROVIDERS: ATTEND Family Medicine
DX: E11.40 Type 2 diabetes mellitus with diabetic neuropathy, unspecified (principal); E78.2 Mixed hyperlipidemia; I10 Essential (primary) hypertension

== ENCOUNTER → 2024-04-30 | Outpatient (CLI) | payer BC ==
[~2024-04-30] MED LIST changes: -CYCL5TAB PO; +CYCL5TAB4 PO; -ROSU5TAB40 PO; +ROSU5TAB49 PO
== END ==
LOC: M SLEEP HO 09:10
PROVIDERS: ATTEND Family Medicine
DX: G47.33 Obstructive sleep apnea (adult) (pediatric) (principal); G47.10 Hypersomnia, unspecified; R06.83 Snoring

== ENCOUNTER → 2024-05-29 | Outpatient (CLI) | payer BC ==
[2024-05-29 07:42] LABS: ALBUMIN 3.6 G/DL (3.2-5.2); ALKALINE PHOSPHATASE 62 U/L (35-104); ALT/SGPT 40 U/L (7.0-40); AST/SGOT 17 U/L (<34); BILIRUBIN,TOTAL 0.4 MG/DL (0.3-1.2); BLOOD UREA NITROGEN 16 MG/DL (9-23); CALCIUM LEVEL 9.7 MG/DL (8.5-10.1); CARBON DIOXIDE LEVEL 28 MMOL/L (20-31); CHLORIDE LEVEL 108 MMOL/L (98-107); CHOLESTEROL LEVEL 177 MG/DL (<200); CHOLESTEROL RISK RATIO 4.29 (<5); CREATININE FOR GFR 0.72 MG/DL (0.55-1.30); GLOMERULAR FILTRATION RATE > 60.0 (>51); GLUCOSE, FASTING 175 MG/DL (60-100); HDL CHOLESTEROL 41.2 MG/DL (>40); IRON (FE) 72 UG/DL (50-170); NON-HDL-C 135.8 MG/DL; POTASSIUM SERUM 4.3 MMOL/L (3.5-5.1); SODIUM LEVEL 141 MMOL/L (136-145); TOTAL PROTEIN 6.7 G/DL (5.7-8.2); TRIGLYCERIDES LEVEL 309 MG/DL (<150)
[2024-05-29 07:44] LABS: FERRITIN 34.5 NG/ML (7.3-270.7); FREE T4 1.25 NG/DL (0.89-1.76); THYROID STIMULATING HORMONE 1.567 uIU/ML (0.55-4.78)
[2024-05-29 08:19] LABS: HEMOGLOBIN A1c 9.3 % (4.0-6.0)
== END ==
LOC: M LAB 06:13
PROVIDERS: ATTEND Family Medicine
DX: E11.40 Type 2 diabetes mellitus with diabetic neuropathy, unspecified (principal); E78.2 Mixed hyperlipidemia; D50.9 Iron deficiency anemia, unspecified